=== PATIENT | male | born 1940 | race Caucasian/White ===

== ENCOUNTER 2019-01-10 06:22 | Day surgery (SDC) | payer MEDICARE ==
[~2019-01-10] VITALS: Ht 172.7 cm; Wt 86.1 kg
[~2019-01-10 06:22] MED LIST: AMIO200T54 PO; ASPI-529 PO; FURO-149 PO; OMEP20CA11 PO; POTA20TA10 PO; RIVA15TA PO; VARE0.5T PO
[2019-01-10] MEDS ORDERED: LIDOcaine 1% 30ml preserv. free vial SQ STA (06:45)
[2019-01-10] MEDS ORDERED: HYDR-4383 PO (06:59)
[2019-01-10] MEDS ORDERED: DOCU-148 PO (06:59)
[2019-01-10] MEDS ORDERED: LEVO112T5 PO (06:59)
[2019-01-10 07:27] VITALS: BP 142/106
[2019-01-10 08:53] VITALS: BP 141/70
[2019-01-10 09:00] VITALS: BP 144/69
[2019-01-10 09:05] VITALS: BP 130/70
== END 2019-01-10 09:20 | disposition home or self-care (01) ==
LOC: SSTAY O 06:22
PROVIDERS: ATTEND Radiology Vascular & Interventional Radiology
DX: R22.1 Localized swelling, mass and lump, neck (principal); Z79.899 Other long term (current) drug therapy; Z79.82 Long term (current) use of aspirin
CPT/HCPCS: 20206; 76942; J2001; 88305